=== PATIENT | female | born 1990 ===

== ENCOUNTER 2016-12-19 09:13 | Outpatient (CLI) | payer OTHER ==
--- NOTE | 2016-12-19 13:35 | Diagnostic Imaging Report ---
Indication: Probable lump at the costal margin on the left Technique: Crowell-scale and duplex images of the upper abdomen were obtained Comparison: Findings: Scanning of the palpable abnormalities of the left costal margin demonstrates protrusion of the distal end of the highest floating rib, with displacement of the overlying musculature. Real-time imaging confirms that this is in fact the end of the first floating rib. Gallbladder is unremarkable, without stones, wall thickening, nor pericholecystic fluid. Sonographic Fitzpatrick's sign is negative. Common bile duct measures 3 mm in diameter. No intrahepatic biliary ductal dilatation. Liver demonstrates normal echogenicity, no focal abnormality. Portal vein and hepatic veins are patent. Pancreas is unremarkable. Spleen is unremarkable. Left kidney measures 9.1 cm in length. Right kidney measures 10.1 cm length. Both kidneys demonstrate normal echogenicity. There is no hydronephrosis. No focal abnormality . Non-aneurysmal abdominal aorta . Impression: Palpable abnormality in the left lower costal margin is demonstrated to be a protruding anterior tip of the highest floating rib. Is a not possible to say based on ultrasound whether is fractured, and plain radiographic correlation may be useful if clinically indicated Otherwise unremarkable abdominal ultrasound
== END 2016-12-19 11:13 | disposition home or self-care (01) ==
LOC: ULS 09:13
DX: R59.1 Generalized enlarged lymph nodes (principal)
CPT/HCPCS: 76700

== ENCOUNTER → 2016-12-21 | Outpatient (CLI) | payer OTHER ==
--- NOTE | 2016-12-21 15:01 | Diagnostic Imaging Report ---
Indication: PAIN Technique: Multiple views of left ribs. Comparison: Reference made to ultrasound of 12/19/2016 Findings: The distal end of the left ninth rib appears superimposed over the tip of the 10th rib. However, no fracture is demonstrated. No gross pneumothorax. Impression: Equivocally abnormal relationship of the tips of the left ninth and 10th ribs, the tip of the ninth rib possibly superimposed and superficial to the 10th rib. This may represent a slight subluxation and could account for abnormality mentioned on recent sonographic imaging. It is also possible that the sonographic findings involve the distal costal cartilage rather than the bony portion of the ribs, and fracture of the cartilage as etiology of the sonographic findings is not excludable based on plain radiographs
== END | disposition home or self-care (01) ==
LOC: RAD 10:07
DX: R07.81 Pleurodynia (principal)